=== PATIENT | male | born 1965 | race Hispanic/Latino ===

== ENCOUNTER 2022-04-01 22:21 | Emergency (ER) | payer SELFPAY ==
[~2022-04-01] VITALS: Ht 182.9 cm; Wt 127.9 kg
[2022-04-01] MEDS ORDERED: PREDNISONE 20 MG TAB PO STA (22:27)
[2022-04-01] MEDS: ALBUTEROL/IPRATROPIUM 3 ML NEB NEB STA (22:30)
[2022-04-01 23:27] LABS: BASOPHILS % 0.4 % (0.0-1.0); EOSINOPHILS # (AUTO) 0.3 (0.0-0.4); EOSINOPHILS % 4.3 % (0.0-6.0); HEMATOCRIT 48.8 % (38.2-49.6); HEMOGLOBIN 15.5 g/dL (14.0-18.0); LYMPHOCYTES # (AUTO) 2.4 (1.0-3.2); LYMPHOCYTES % 29.9 % (18.0-39.1); MEAN CORPUSCULAR HEMOGLOBIN 32.6 pg (28-32); MEAN CORPUSCULAR HGB CONC 31.8 g/dL (31-35); MEAN CORPUSCULAR VOLUME 102.5 fL (81-99); MONOCYTES % 12.7 % (4.4-11.3); NEUTROPHILS # (AUTO) 4.2 (2.1-6.9); NEUTROPHILS % 52.4 % (38.7-80.0); PLATELET COUNT 228 x10e3/uL (140-360); RED BLOOD COUNT 4.76 x10e6/uL (4.3-5.7); RED CELL DISTRIBUTION WIDTH 11.6 % (11.7-14.4)
[2022-04-01 23:49] LABS: ALBUMIN 3.7 g/dL (3.5-5.0); ANION GAP 16.8 mmol/L (8-16); CALCIUM 8.6 mg/dL (8.4-10.2); CREATININE, SERUM 0.96 mg/dL (0.72-1.25); POTASSIUM 3.8 mmol/L (3.5-5.1)
[2022-04-01 23:55] LABS: CREATINE KINASE MB 0.9 ng/mL (0-5.0)
[2022-04-02] MEDS ORDERED: AZITHROMYCIN250 MG PO (00:06)
[2022-04-02] MEDS ORDERED: PREDNISONE20 MG PO (00:06)
[2022-04-02] MEDS ORDERED: VENTOLIN HFA18 GM INH (00:06)
[2022-04-02 00:15] VITALS: BP 146/94
== END 2022-04-02 00:17 | disposition home or self-care (01) ==
LOC: ER 22:33
DX: R05.9 Cough, unspecified (principal); U07.1 COVID-19; J40 Bronchitis, not specified as acute or chronic; R53.81 Other malaise
CPT/HCPCS: 36415; 71046; 80053; 82550; 82553; 83690; 83880; 84484; 85025; 85379; 93005; 94640; 94799; 99284; J7512; U0002